=== PATIENT | male | born 1940 | race Hispanic/Latino ===

== ENCOUNTER 2016-11-28 11:39 | Emergency (ER) | payer MEDICARE ==
[~2016-11-28 11:39] MED LIST: ADRENALIN ONE
[2016-11-28] MEDS ORDERED: PEPCID IV ONE ×2 (11:44→11:46)
[2016-11-28] MEDS ORDERED: NACL 0.9% 1000 ML 1,000 ML IV ONE (11:46)
--- NOTE | 2016-11-28 11:48 | Emergency Department Report ---
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 In route patient received Benadryl and Solu-Medrol. Patient's symptoms are mildly improved. ED Past Medical Hx - Past Medical History Previous Medical History?: Yes Hx Hypertension: Yes - Social History Smoking Status: Never Smoker Substance Use Type: None - Medications Home Medications: Home Medications Medication Instructions Recorded Confirmed Last Taken Type Acetaminophen [Shake That Ache] 500 mg PO PRN PRN 11/28/16 11/28/16 11/28/16 History Lisinopril [Zestril] 20 mg PO BID 11/28/16 11/28/16 11/28/16 History Multivitamin Tab [Multiple Vitamin 1 each PO QDAY 11/28/16 11/28/16 11/27/16 History TAB (Theragran)] Triamter/Hctz 37.5-25 mg 1 tab PO DAILY 11/28/16 11/28/16 11/28/16 History [Maxzide-25] Verapamil [Calan] 120 mg PO BID 11/28/16 11/28/16 11/28/16 History methylPREDNISolone [Medrol] 4 mg PO QAM #1 pack 11/28/16 Unknown Rx ED Review of Systems ROS: Stated complaint: ALLERGIC REACTION Other details as noted in HPI Comment: All other systems reviewed and negative ENT: throat pain Respiratory: shortness of breath Cardiovascular: chest pain, dyspnea on exertion Physical Exam - Physical Exam Vital Signs: Vital Signs 11/28/16 11/28/16 11/28/16 11:36 11:37 11:41 Temperature 98.1 F Pulse Rate 83 83 87 Respiratory 13 14 20 Rate Blood Pressure 205/102 O2 Sat by Pulse 96 95 97 Oximetry General: Allert in mild distress Physical Exam: HEENT mild pharyngeal erythema Lungs mild expiratory wheezing Cardiovascular mild tachycardia Abdomen soft nontender Skin right hand swelling would be staying upper lip swelling Extremity no peripheral edema Neurology elevated oriented 3 no focal weakness. ED Course Vital Signs 11/28/16 11/28/16 11/28/16 11:36 11:37 11:41 Temperature 98.1 F Pulse Rate 83 83 87 Respiratory 13 14 20 Rate Blood Pressure 205/102 O2 Sat by Pulse 96 95 97 Oximetry - Reevaluation(s) Reevaluation #1: 11/28/16 14:18 Drastic improvement with medication wants to go home Critical care attestation.: If time is entered above; I have spent that time in minutes in the direct care of this critically ill patient, excluding procedure time. ED Disposition Clinical Impression: Acute allergic reaction Disposition: DC-01 TO HOME OR SELFCARE Is pt being admited?: No Does the pt Need Aspirin: No Condition: Stable Instructions: Allergies (ED) Prescriptions: methylPREDNISolone [Medrol] 4 mg PO QAM #1 pack
[2016-11-28] MEDS ORDERED: NACL 0.9% 1000 ML ONE (11:53)
[2016-11-28 14:14] VITALS: BP 185/88
== END 2016-11-28 14:27 | disposition home or self-care (01) ==
LOC: ED 11:39
DX: T63.441A Toxic effect of venom of bees, accidental (unintentional), initial encounter (principal); I10 Essential (primary) hypertension; Z91.030 Bee allergy status; Y92.89 Other specified places as the place of occurrence of the external cause
CPT/HCPCS: 96361; 96374; 99283; J7030; J0171